=== PATIENT | male | born 1975 | race Caucasian/White ===

== ENCOUNTER 2018-09-13 12:10 | Inpatient (IN) | payer MEDICAID ==
[~2018-09-13] VITALS: Ht 160 cm; Wt 72.9 kg
[2018-09-13] MEDS ORDERED: ONDANSETRON 4 MG INJ IV STA (12:31)
[2018-09-13] MEDS ORDERED: morphine 4 MG/ML VIAL IV STA (12:31)
[2018-09-13] MEDS ORDERED: SOD CHLORIDE 0.9% 100 ML ONE (15:10)
[2018-09-13] MEDS ORDERED: IOHEXOL 300MG/ML 150 ML BTL ONE (15:10)
[2018-09-13] MEDS ORDERED: SOD CHLORIDE 0.9% 1,000 ML IV ONE (16:16)
--- NOTE | 2018-09-13 16:26 | ERD ---
ER Documentation Chief Complaint Chief Complaint abd pain with diarrhea x 3 days HPI This 42-year-old male presents with 3-day history of diarrhea, left lower quadrant abdominal pain and subjective fevers. Diarrhea is nonbloody without mucus. He has nausea but no vomiting. Patient states that he is otherwise healthy. Patient denies any foreign travel or suspect food. Pain 3 out of 10 and nonradiating. ROS All systems reviewed and are negative except as per history of present illness. Allergies Allergies: Coded Allergies: No Known Allergy (Unverified , 09/13/18) PMhx/Soc Medical and Surgical Hx: pt denies Medical Hx, pt denies Surgical Hx Hx Alcohol Use: No Hx Substance Use: No Hx Tobacco Use: No Smoking Status: Never smoker FmHx Family History: No diabetes, No coronary disease, No other Physical Exam Vitals Vital Signs Date Temp Pulse Resp B/P (MAP) Pulse Ox O2 O2 Flow FiO2 Time Delivery Rate 09/13/18 99.2 104 20 136/82 96 12:13 (100) Physical Exam Const: No acute distress Head: Atraumatic Eyes: Normal Conjunctiva ENT: Normal External Ears, Nose and Mouth. Neck: Full range of motion. No meningismus. Resp: Clear to auscultation bilaterally Cardio: Regular rate and rhythm, no murmurs Abd: Soft, left lower quadrant with focal findings of rebound. No tenderness at McBurney's point no Buckner sign. Non distended. Normal bowel sounds Skin: No petechiae or rashes Back: No midline or flank tenderness Ext: No cyanosis, or edema Neur: Awake and alert Psych: Normal Mood and Affect Result Diagram: 09/13/18 1236 09/13/18 1236 Results 24 hrs Laboratory Tests Test 09/13/18 12:36 White Blood Count 13.5 10^3/ul Red Blood Count 5.22 10^6/ul Hemoglobin 15.0 g/dl Hematocrit 45.6 % Mean Corpuscular Volume 87.4 fl Mean Corpuscular Hemoglobin 28.7 pg Mean Corpuscular Hemoglobin Concent 32.9 g/dl Red Cell Distribution Width 13.2 % Platelet Count 331 10^3/UL Mean Platelet Volume 10.1 fl Immature Granulocytes % 0.500 % Neutrophils % 81.1 % Lymphocytes % 13.0 % Monocytes % 4.6 % Eosinophils % 0.4 % Basophils % 0.4 % Nucleated Red Blood Cells % 0.0 /100WBC Immature Granulocytes # 0.070 10^3/ul Neutrophils # 10.9 10^3/ul Lymphocytes # 1.8 10^3/ul Monocytes # 0.6 10^3/ul Eosinophils # 0.1 10^3/ul Basophils # 0.1 10^3/ul Nucleated Red Blood Cells # 0.0 10^3/ul Urine Color AIDEN Urine Clarity CLEAR Urine pH 5.0 Urine Specific [place] 1.029 Urine Ketones 1+ mg/dL Urine Nitrite NEGATIVE mg/dL Urine Bilirubin NEGATIVE mg/dL Urine Urobilinogen 2+ mg/dL Urine Leukocyte Esterase NEGATIVE Tomi/ul Urine Microscopic RBC 0 /HPF Urine Microscopic WBC 1 /HPF Urine Mucus FEW /HPF Urine Hemoglobin NEGATIVE mg/dL Urine Glucose NEGATIVE mg/dL Urine Total Protein 1+ mg/dl Sodium Level 139 mmol/L Potassium Level 3.7 mmol/L Chloride Level 102 mmol/L Carbon Dioxide Level 26 mmol/L Anion Gap 11 Blood Urea Nitrogen 16 mg/dl Creatinine 0.75 mg/dl Est Glomerular Filtrat Rate mL/min > 60 mL/min Glucose Level 121 mg/dl Calcium Level 9.8 mg/dl Total Bilirubin 0.5 mg/dl Direct Bilirubin 0.00 mg/dl Indirect Bilirubin 0.5 mg/dl Aspartate Amino Transf (AST/SGOT) 25 IU/L Alanine Aminotransferase (ALT/SGPT) 24 IU/L Alkaline Phosphatase 113 IU/L Total Protein 8.4 g/dl Albumin 4.3 g/dl Globulin 4.10 g/dl Albumin/Globulin Ratio 1.04 Lipase 29 U/L Current Medications Medications Dose Sig/Dane Start Time Status Last (Trade) Ordered Route PRN Stop Time Admin Dose Reason Admin Morphine 4 mg ONCE STAT 09/13/18 DC 09/13/18 Sulfate IV 12:31 12:46 (morphine) 09/13/18 12:33 Ondansetron 4 mg ONCE STAT 09/13/18 DC 09/13/18 HCl (Zofran IV 12:31 12:46 Inj) 09/13/18 12:33 Sodium 100 ml @ ud STK-MED 09/13/18 DC Chloride ONCE .ROUTE 15:10 09/13/18 15:11 Iohexol 150 ml STK-MED 09/13/18 DC (Omnipaque ONCE .ROUTE 15:10 300mg/ ml) 09/13/18 15:11 Sodium 1,000 ml @ Q0M ONCE 09/13/18 DC Chloride 0 mls/hr IV 16:16 09/13/18 16:19 Piperacillin 100 ml @ ONCE ONCE 09/13/18 Sod/ 200 mls/hr IVPB 16:30 Tazobactam 09/13/18 16:59 Sod Procedures/MDM Patient presents with diarrhea, subjective fevers left lower quadrant abdominal tenderness. CBC shows white blood cell count 13, CMP normal. Patient given morphine for iv, Zofran, with a normal saline IV. CT abdomen pelvis performed PROCEDURE: CT ABDOMEN AND PELVIS WITH IV CONTRAST. CLINICAL INDICATION: Abdominal pain TECHNIQUE: CT scan of the abdomen and pelvis with contrast was performed on a multidetector high-resolution CT scanner following the use of IV contrast. 90 cc Omnipaque-300 was administered. Coronal and sagittal reformatted images were obtained from the axial source images. Images were reviewed on a high-resolution PACS workstation. The total exam CTDI equals 10.1 mGy and the total exam DLP equals 625.5 mGy-cm. One or more of the following dose reduction techniques were used: Automated exposure control. Adjustment of the mA and/or kV according to patient size. Use of iterative reconstruction technique. DICOM images are available. COMPARISON: None FINDINGS: CT abdomen: Bibasilar atelectasis. Heart size is within normal limits. No significant pericardial effusion. Hepatic morphology is within normal limits. No gross contour deforming masses. The gallbladder is within normal limits. No evidence of intrahepatic or extrahepatic biliary dilatation. The spleen and pancreas are within normal limits. Both adrenal glands are within normal limits. Both kidneys are in anatomic position. There is a right-sided renal cyst measuring 2.0 cm. No gross renal/ureteric calculi. No evidence of obstructive uropathy. The visualized GI tract demonstrates a small hiatal hernia. Normal caliber loops of small and large bowel. No evidence of bowel obstruction. The appendix is wit hin normal limits. The aorta is unremarkable. No significant retroperitoneal lymphadenopathy. CT pelvis: There is focal thickening of the champion of the sigmoid colon with adjacent inflammatory changes and multiple diverticuli, consistent with right to severe diverticulitis. Adjacent free fluid is noted. There is inflammation of the adjacent loops of distal small bowel within the pelvis, with bowel wall thickening and adjacent inflammatory changes. A focal fluid collection is noted within the anterior lower abdomen measuring 5.2x 2.1 cm. The visualized osseous structures appears to be within normal limits. IMPRESSION: 1. ACUTE MODERATE TO SEVERE DIVERTICULITIS OF THE SIGMOID COLON. THERE IS THICKENING OF THE CHAMPION WITH ADJACENT INFLAMMATORY CHANGES AND FLUID. 2. THERE IS ADJACENT INFLAMMATION WITH DEVELOPMENT OF FOCAL ENTERITIS OF DISTAL SMALL BOWEL. THERE IS DIFFUSE BOWEL WALL THICKENING WITH ADJACENT INFLAMMATORY CHANGES. 3. A 5.2 X 2.1 CM FOCAL FLUID COLLECTION IS NOTED WITHIN THE ANTERIOR LOWER ABDOMEN, CONCERNING FOR ABSCESS. 4. No evidence of bowel obstruction. The appendix is within normal limits. 5. Right-sided renal cyst. No evidence of obstruction or hydronephrosis within both kidneys. RPTAT: AAPP Physician Felicia Date Time Electronically viewed and signed by Physician Felicia on 09/13/2018 15:57 JL/ CC: CORWIN LAKHANI MD [id number] Patient presents with signs and symptoms of diverticulitis complicated with abscess. There is no signs of obstruction, patient otherwise well-appearing and is hungry. Patient given Zosyn 3.375 g IV will be admitted for further evaluation treatment. Patient stable throughout the ER course. Departure Diagnosis: Primary Impression: Abdominal pain Abdominal location: left lower quadrant Qualified Codes: R10.32 - Left lower quadrant pain Additional Impression: Diverticulitis large intestine w/o perforation or abscess w/o bleeding Condition: Fair CORWIN LAKHANI MD Sep 13, 2018 16:26
[2018-09-13] MEDS ORDERED: PIPER-TAZO 3.375 GM IV (PMX) 100 ML IVPB ONE (16:30)
[2018-09-13] MEDS ORDERED: ACETAMINOPHEN 325 MG TAB PO PRN (18:00)
[2018-09-13] MEDS ORDERED: HYDROCODONE/APAP (5/325) TAB PO PRN (18:00)
[2018-09-13] MEDS ORDERED: morphine 2 MG INJ IV PRN (18:00)
[2018-09-13] MEDS ORDERED: ONDANSETRON 4 MG INJ IV PRN (18:00)
[2018-09-13] MEDS ORDERED: metroNIDAZOLE (5 MG/ML) IV SYG IV* SCH (18:00)
[2018-09-13] MEDS ORDERED: PIPER-TAZO 3.375 GM IV (PMX) 100 ML IVPB SCH (18:00)
[2018-09-13] MEDS ORDERED: NACL 0.9% 3 ML SYG IV SCH (18:00)
--- NOTE | 2018-09-13 18:00 | HP ---
Date/Time of Note Date/Time of Note DATE: 09/13/18 TIME: 17:52 Assessment/Plan VTE Prophylaxis SCD applied (from Nsg): Yes Pharmacological prophylaxis: NA/contraindicated Pharm contraindication: low risk/ambulating Lines/Catheters IV Catheter Type (from Nrsg): Saline Lock Assessment/Plan Assessment/Plan 42 yo man no PMH presents with diverticulitis and abdominal abscess #Diverticulitis - IV zosyn and flagyl - IV fluids - Opioid analgesics - Will cautiously advance diet to clear liquids - Admit to med/surg - Arrange colonoscopy after discharge. - Patient can perform >4 METS without chest pain or dyspnea. He is medically optimized for high risk abdominal surgery if necessary with no further cardiac w orkup. 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 He was in his usual state of health until Friday afternoon around 3pm he had acute onset severe LUQ/LLQ abdominal pain. Cannot clarify the quality, just "pain". That night had nonbloody diarrhea. Also subjective fever, poor appetite but no nausea or vomiting. He has no medical problems, never been hospitalized. He denies being constipated. Did not eat anything unusual. In the ED he was febrile, P 104, R 20, BP 136/82. WBC 13.5, labs otherwise unremarkable. CT shows sigmoid diverticulitis with a 5x2 cm abdominal abscess. ROS Denies chills, weight loss, night sweats, headache, vision changes, nausea, vomiting, cough, dyspnea, hematochezia, constipation, dysuria, hematuria, melena. PMH/Family/Social Past Medical History Medical History: no pertinent history Medications Current Medications IV Flush (NS 3 ml) 3 ml PER PROTOCOL IV ; Start 09/13/18 at 18:00; Status UNV Ondansetron HCl (Zofran Inj) 4 mg Q6H PRN IV NAUSEA/VOMITING; Start 09/13/18 at 18:00; Status UNV Acetaminophen (Tylenol Tab) 650 mg Q6H PRN PO .PAIN 1-3 OR TEMP; Start 09/13/18 at 18:00; Status UNV Acetaminophen/ Hydrocodone Bitart ([place] (5/325)) 1 tab Q6H PRN PO .MOD PAIN 4- 6; Start 09/13/18 at 18:00; Status UNV Morphine Sulfate (morphine) 2 mg Q4H PRN IV .SEVERE PAIN 7-10; Start 09/13/18 at 18:00; Status UNV Metronidazole (Flagyl Iv (Ped)) 500 mg Q8 IV* ; Start 09/13/18 at 18:00; Status UNV Piperacillin Sod/ Tazobactam Sod 100 ml @ 200 mls/hr Q6H IVPB ; Start 09/13/18 at 18:00; Status UNV Coded Allergies: No Known Allergy (Unverified , 09/13/18) Past Surgical History Past Surgical Hx: no surgical history Family History Significant Family History: no pertinent family hx Social History Works as a industrial spray painter Alcohol Use: none Smoking Status: Never smoker Drug Use: none Exam/Review of Systems Vital Signs Vitals Vital Signs Date Temp Pulse Resp B/P (MAP) Pulse Ox O2 O2 Flow FiO2 Time Delivery Rate 09/13/18 99.3 101 18 124/77 99 Room Air 16:45 (93) Exam Exam General: Well developed man in some discomfort HEENT: Atraumatic, normocephalic. The pupils are equal, round and reactive. Neck: Supple with full range of motion. No rigidity or meningismus Chest: Nontender Lungs: Clear to auscultation bilaterally no crackles rales or wheezing Heart: Normal S1-S2, Regular rhythm and rate. No murmur, S3, or S4 Abdomen: Soft, no guarding. LUQ tenderness to moderate palpation, LLQ tenderness to light palpation. No rebound tenderness. Extremities: Normal to inspection, no edema no cyanosis Skin: warm, dry, well perfused. NICANOR TORRES MD Sep 13, 2018 18:00
[2018-09-13] MEDS: Metronidazole 500 MG in NS 100 ML IVPB SCH ×2 (19:06→22:23)
[2018-09-13] MEDS: SOD CHLORIDE 0.9% 1,000 ML IV SCH (19:07)
[2018-09-13 21:30] VITALS: BP 122/76; PULSE 100; RESP 18
[2018-09-13 22:00] VITALS: Ht 160 cm; Wt 72.9 kg
[2018-09-13 22:30] VITALS: BP 130/82; PULSE 95; RESP 18
[2018-09-13] MEDS: PIPER-TAZO 3.375 GM IV (PMX) 100 ML IVPB SCH (23:50)
[2018-09-14 01:14] VITALS: BP 112/63; PULSE 90; RESP 16
[2018-09-14] MEDS: PIPER-TAZO 3.375 GM IV (PMX) 100 ML IVPB SCH ×2 (05:28→14:07)
[2018-09-14] MEDS: Metronidazole 500 MG in NS 100 ML IVPB SCH ×2 (06:16→14:59)
[2018-09-14] MEDS: SOD CHLORIDE 0.9% 1,000 ML IV SCH ×2 (07:20→13:43)
[2018-09-14 07:25] VITALS: BP 133/78; PULSE 88; RESP 18
[2018-09-14] MEDS ORDERED: TRIMETHOBENZAMIDE 100 MG/ML VIAL IM PRN (09:00)
[2018-09-14] MEDS ORDERED: METOCLOPRAMIDE 10 MG INJ IV PRN (09:00)
--- NOTE | 2018-09-14 14:29 | PDOCDIS ---
Discharge Instructions CONDITION [id number] Patient Condition: [id number] Stable HOME CARE INSTRUCTIONS: [id number] Diet Instructions: [id number] Low Fat /Cholesterol ACTIVITY: [id number] Activity Restrictions: [id number] Slowly Increase Activity Rest between Activity Avoid heavy lifting FOLLOW UP/APPOINTMENTS Follow-up Plan Please take your medications as prescribed. Please see your doctor in the clinic in the next 1 week. CARLOS FLAHERTY Sep 14, 2018 14:29
[2018-09-14] MEDS ORDERED: LOPE2CAP PO (14:31)
[2018-09-14] MEDS ORDERED: METR500T PO (14:31)
[2018-09-14] MEDS ORDERED: CIPR500T4 PO (14:31)
[2018-09-14] MEDS ORDERED: HYDR-4011 PO (14:31)
--- NOTE | 2018-09-14 14:38 | DS ---
Date/Time of Note Date/Time of Note DATE: 09/14/18 TIME: 14:35 Discharge Summary Admission/Discharge Info Admit Date/Time Sep 13, 2018 at 17:26 Discharge Date/Time Discharge Diagnosis #Diverticulitis -found on imaging studies, improving with antibiotics per #Pericolic abscess -per interventional radiology, not enough to drain at this time. Slowly improving. 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 He was in his usual state of health until Friday afternoon around 3pm he had acute onset severe LUQ/LLQ abdominal pain. Cannot clarify the quality, just "pain". That night had nonbloody diarrhea. Also subjective fever, poor appetite but no nausea or vomiting. He has no medical problems, never been hospitalized. He denies being constipated. Did not eat anything unusual. In the ED he was febrile, P 104, R 20, BP 136/82. WBC 13.5, labs otherwise unre markable. CT shows sigmoid diverticulitis with a 5x2 cm abdominal abscess. Hospital Course Patient was admitted to medical surgical unit. Placed on IV antibiotics. Patient was given pain control medications and IV fluids. There was an attempt by interventional radiology to drain the pericolic abscess seen on the imaging study along with the diverticulitis, however it was determined that there was not enough fluid to be drained. In any event patient's white blood cell count improved, no fevers. He was able to ambulate, tolerated p.o. diet. He still had some diarrhea by the time of discharge but it was less in intensity. Because patient is clinically improving he will be discharged home today in improved condition. He will need antibiotics for another 7 days which we will prescribe. See below for full list of discharge medications. Home Meds Active Scripts Loperamide Hcl* (Imodium*) 2 Mg Capsule, 2 MG PO QID PRN for DIARRHEA, #15 CAP MAX 16 mg/day Prov:CARLOS FLAHERTY S. 09/14/18 Hydrocodone/Acetaminophen ([place] 5-325 Tablet) 1 Each Tablet, 1 EACH PO Q6, #20 TAB Prov:CARLOS FLAHERTY S. 09/14/18 Metronidazole* (Flagyl*) 500 Mg Tablet, 500 MG PO TID for 7 Days, #21 TAB Prov:CARLOS FLAHERTY. 09/14/18 Ciprofloxacin Hcl* (Ciprofloxacin Hcl*) 500 Mg Tablet, 500 MG PO BID for 7 Days, #14 TAB Prov:CARLOS FLAHERTY S. 09/14/18 Follow-up Plan Please take your medications as prescribed. Please see your doctor in the clinic in the next 1 week. Primary Care Provider Care Physician No Primary Time spent on discharge: > 30 minutes Pending Labs Laboratory Tests Test 09/14/18 04:20 White Blood Count 12.0 10^3/ul (4.8-10.8) Red Blood Count 4.96 10^6/ul (4.70-6.10) Hemoglobin 14.0 g/dl (14.0-18.0) Hematocrit 44.0 % (42.0-52.0) Mean Corpuscular Volume 88.7 fl (82.0-101.0) Mean Corpuscular Hemoglobin 28.2 pg (29.0-33.0) Mean Corpuscular Hemoglobin Concent 31.8 g/dl (32.0-37.0) Red Cell Distribution Width 13.2 % (11.5-14.5) Platelet Count 343 10^3/UL (140-415) Mean Platelet Volume 10.4 fl (7.4-10.4) Immature Granulocytes % 0.500 % (0.001-0.429) Neutrophils % 78.9 % (39.0-77.0) Lymphocytes % 12.9 % (15.0-51.0) Monocytes % 6.7 % (0.0-11.0) Eosinophils % 0.5 % (0.0-7.0) Basophils % 0.5 % (0.0-2.0) Nucleated Red Blood Cells % 0.0 /100WBC (0.0-0.0) Immature Granulocytes # 0.060 10^3/ul (0.0-0.031) Neutrophils # 9.5 10^3/ul (1.6-7.5) Lymphocytes # 1.6 10^3/ul (0.8-2.9) Monocytes # 0.8 10^3/ul (0.3-0.9) Eosinophils # 0.1 10^3/ul (0.0-0.5) Basophils # 0.1 10^3/ul (0.0-0.1) Nucleated Red Blood Cells # 0.0 10^3/ul (0.0-0.0) Sodium Level 140 mmol/L (135-144) Potassium Level 4.0 mmol/L (3.5-5.1) Chloride Level 100 mmol/L (97-110) Carbon Dioxide Level 29 mmol/L (21-31) Anion Gap 11 (5-13) Blood Urea Nitrogen 12 mg/dl (7-20) Creatinine 0.93 mg/dl (0.61-1.24) Est Glomerular Filtrat Rate mL/min > 60 mL/min (>60) Glucose Level 105 mg/dl (70-220) Hemoglobin A1c 5.8 % (0-5.9) Calcium Level 8.8 mg/dl (8.4-10.2) Phosphorus Level 3.5 mg/dl (2.5-4.9) Magnesium Level 2.5 mg/dl (1.7-2.5) Total Bilirubin 0.5 mg/dl (0.2-1.3) Direct Bilirubin 0.00 mg/dl (0.00-0.20) Indirect Bilirubin 0.5 mg/dl (0-1.1) Aspartate Amino Transf (AST/SGOT) 42 IU/L (15-46) Alanine Aminotransferase (ALT/SGPT) 42 IU/L (13-69) Alkaline Phosphatase 125 IU/L (42-121) Total Protein 7.4 g/dl (6.1-8.1) Albumin 3.7 g/dl (3.3-4.9) Globulin 3.70 g/dl (1.3-3.2) Albumin/Globulin Ratio 1.00 Triglycerides Level 127 mg/dl (0-149) Cholesterol Level 146 mg/dl (100-200) LDL Cholesterol, Calculated 88 mg/dl HDL Cholesterol 33 mg/dl (27-67) Cholesterol/HDL Ratio 4.4 RATIO Thyroid Stimulating Hormone (TSH) 2.400 MIU/L (0.465-4.680) CARLOS FLAHERTY Sep 14, 2018 14:38
[2018-09-14 15:16] VITALS: BP 126/68; PULSE 86; RESP 18
== END 2018-09-14 18:45 | disposition home or self-care (01) | DRG 392 ==
LOC: FTE 12:10 → MS1 17:26 → CANRESERV 20:15
PROVIDERS: ADMIT Internal Medicine; ATTEND Hospitalist
DX: K57.20 Diverticulitis of large intestine with perforation and abscess without bleeding (principal)
CPT/HCPCS: 36415; 74177; 80053; 80061; 81001; 83036; 83690; 83735; 84100; 84443; 85025; 85610; 85730; 96374; 96375; J2270; J2405; J2543; J2765; J7030; Q9967